=== PATIENT | male | born 1970 | race Caucasian/White ===

== ENCOUNTER 2019-02-19 12:46 | Emergency (ER) | payer MEDICAID ==
[2019-02-19] MEDS: KETOROLAC 30 MG INJ IM (14:39)
== END 2019-02-19 14:45 | disposition home or self-care (01) ==
LOC: FTE 12:46
DX: S39.92XA Unspecified injury of lower back, initial encounter (principal); X50.0XXA Overexertion from strenuous movement or load, initial encounter; Y92.9 Unspecified place or not applicable
CPT/HCPCS: 96372; 99284-25